=== PATIENT | male | born 1940 | race Caucasian/White ===

== ENCOUNTER 2018-07-10 11:01 | Inpatient (IN) ==
[2018-07-11] MEDS ORDERED: Dextrose Gel 15 GM/37.5 ML TUBE PO PRN ×2 (17:39)
[2018-07-11] MEDS ORDERED: *HR* Dextrose 50 % in Water (Syg) 50 ML SYRINGE IVP PRN (17:39)
[2018-07-11] MEDS ORDERED: D5% in Water 1,000 ML IVC PRN (17:39)
[2018-07-11] MEDS: Insulin LISPRO 300 UNITS/3 ML VIAL SQ SCH ×2 (20:11→21:23)
[2018-07-11] MEDS: Megestrol Acetate 400 MG/10 ML UDC PO SCH (21:19)
[2018-07-11] MEDS: Insulin DETEMIR 100 UNIT/ML X5UNITS SQ SCH (21:21)
[2018-07-12 06:12] LABS: Basophils # 0.1 K/mcL (0.0-0.2); Basophils % 0.6 %; Eosinophils # 0.5 K/mcL (0.0-0.6); Eosinophils % 4.2 %; Hematocrit 33.4 % (37.5-50.1); Hemoglobin 11.2 g/dL (12.9-16.9); Immature Granulocytes % 0.4 % (0-4); Lymphocytes # 2.7 K/mcL (0.6-4.6); Lymphocytes % 25.1 %; Mean Corpuscular HGB Conc 33.5 g/dL (31.6-35.5); Mean Corpuscular Hemoglobin 29.8 pg (28.0-33.3); Mean Corpuscular Volume 88.8 fL (83.0-100.0); Mean Platelet Volume 8.9 fL (9.4-12.4); Monocytes # 0.7 K/mcL (0.0-1.3); Monocytes % 6.9 %; Neutrophils # 6.7 K/mcL (1.6-8.9); Platelet Count 290 K/mcL (140-400); Red Blood Count 3.76 M/mcL (4.19-5.50); Red Cell Distribution Width 14.9 % (11.5-14.5); Segmented Neutrophils % 62.8 %
[2018-07-12 06:24] LABS: BUN/Creatinine Ratio 22 (6-26); Blood Urea Nitrogen 23 mg/dL (8-23); Calcium 8.4 mg/dL (8.6-10.3); Carbon Dioxide 21 mEq/L (23-29); Chloride 108 mEq/L (98-107); Glucose 147 mg/dL (70-105); Osmolality,Calculated 290 (280-300); Potassium 3.8 mEq/L (3.5-5.1); Sodium 137 mEq/L (136-145); eGFR For Non-African Americans > 60 (> 60)
[2018-07-12] MEDS: Aspirin Enteric Coated 81 MG Tablet PO SCH (08:11)
[2018-07-12] MEDS: BuPROPion XL (24 HR) 150 MG TABLET PO SCH (08:11)
[2018-07-12] MEDS: Insulin LISPRO 300 UNITS/3 ML VIAL SQ SCH ×4 (08:16→20:25)
[2018-07-12] MEDS: Megestrol Acetate 400 MG/10 ML UDC PO SCH ×2 (08:16→20:26)
--- NOTE | 2018-07-12 14:15 | Internal Med History&Physical ---
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 He has improved appetite on megace. He had previous failuire to thrive and needs to continue megace for nowl Will increase his long acting insulin slightly and continue slide scale. Change slide scale from low to high dose. AC HS may need even higher long acting depending on short acting needs and blood sugar readings. He likely had need of insulin before he started it and now has peripheral vascular complications. Continue PLAVIX and ASA. He renal function is preserved. He may have some autonomic insufficiency that accounts for orthostatic changes. Continue to monitor. Qualifiers: Diabetes mellitus type: type 2 Diabetes mellitus manager intermediate insulin use: unspecified manager intermediate insulin use status Diabetes mellitus complication status: with circulatory complication Diabetes mellitus complication detail: with other circulatory complications Qualified Code(s): E11.59 - Type 2 diabetes mellitus with other circulatory complications Internal Medicine - H&P: HPI Chief complaint: deconditioning Admitted From: Intrahospital Transfer History of present illness: Mr. Yañez is a 77 year old male who was transfer from [facility] with deconditioning. He has had poorly controlled diabetes, and recently needed a toe amputation. He went to ER feeling weak and was found to have elevated blood sugars. 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 He developed diabetes about age 39, but says never needed insulin until this recent admission. He now is on combination of long and short acting and sugars still running slightly high. He says many in his family have diabetes. He had toe amputation at [place] he says due to diabetic ulcer. He says it does not hurt. He had some weight loss and poor appetite in months prior to admission. He was put on Megace recently and says it helps. Says he feels hunger now. He would like to eat more. He reports some irritation of mouth and some dry mouth. He has some dental disease. He says he does feel dizzy at times when he stands up or sits up fast. He says that has been going on for a while. He denies headache or chest pains. He reports he is able to urinate and passing gas. He says he has some fatigue still. Past Med Surg Social Fam HX - Past Medical History Medical history: coronary artery disease, diabetes, hyperlipidemia, other Additional medical history: multiple spinal fractures, left ear laceration, rib fractures, occlusion right ICA (chronic) Psychiatric history: depression - Past Surgical History Surgical History: coronary bypass (CABG), other Additional surgical history: BPH - Social History Smoking Status: Never smoker Smokeless Tobacco Status: No Alcohol use: none Drug use: none - Family History Father Living Status: Sister Hx Family Endocrine Disorder: Yes (DM) Mother Living Status: Hx Family Endocrine Disorder: Yes (DM) Internal Medicine - H&P: Meds Aspirin Enteric Coated [Aspirin EC] 81 mg PO DAILY 14 Days #14 tablet. 10/22/17 [Rx] Clopidogrel [Plavix] 75 mg PO DAILY 14 Days #14 tablet 10/22/17 [Rx] BuPROPion XL (24 HR) [Wellbutrin Xl] 150 mg PO DAILY 05/06/18 [History] Megestrol Acetate [Megace] 10 ml PO BID 07/08/18 [History] Insulin DETEMIR [Levemir] 15 unit SQ HS 30 Days [id number] 07/11/18 [Rx] Metoprolol [Lopressor] 25 mg PO BID tablet 07/11/18 [Rx] Simvastatin [Zocor] 80 mg PO HS tablet 07/11/18 [Rx] Tamsulosin [Flomax] 0.4 mg PO DAILY capsule 07/11/18 [Rx] Allergy/AdvReac Type Severity Reaction Status Date / Time No Known Allergies Allergy Verified 11/13/17 12:13 All Systems PM: A 10-system review of systems was performed and is negative for pertinent findings except as documented above in the HPI. - Constitutional Vitals: Temp Pulse Resp BP Pulse Ox 98.0 F 78 14 102/62 94 07/12/18 09:56 07/12/18 11:53 07/12/18 09:56 07/12/18 11:53 07/12/18 11:53 - ENT ENT exam: Present: mucous membranes dry, normal external ear exam Additional comments: Pt has erythematous oral mucosa with mild white debri in folds - Neck Additional comments: no mass no bruit - Respiratory Additional comments: pt has good effort and clear bilateral - Cardiovascular Cardiovascular exam: Present: distant heart sounds Additional comments: Heart is regular No murmer - GI/Abdominal GI/Abdominal exam: Present: normal bowel sounds Additional comments: pt abd is soft NT no mass palp Internal Med - H&P Results - Labs CBC & Chem 7: 07/14/18 05:35 07/14/18 05:35 Labs: Short CBC 07/12/18 Range/Units 05:25 WBC 10.7 (4.3-11.1) K/mcL Hgb 11.2 L (12.9-16.9) g/dL Hct 33.4 L (37.5-50.1) % Plt Count 290 (140-400) K/mcL Neutrophils # 6.7 (1.6-8.9) K/mcL BMP 07/12/18 05:25 Sodium 137 Potassium 3.8 Chloride 108 H Carbon Dioxide 21 L BUN 23 Creatinine 1.04 Glucose 147 H Calcium 8.4 L
[2018-07-12] MEDS: *HR* Heparin 5,000 UNIT/ML VIAL SQ SCH (17:10)
[2018-07-12] MEDS: Insulin DETEMIR 100 UNIT/ML X5UNITS SQ SCH (20:26)
[2018-07-13] MEDS: *HR* Heparin 5,000 UNIT/ML VIAL SQ SCH ×2 (05:47→16:47)
[2018-07-13] MEDS: Aspirin Enteric Coated 81 MG Tablet PO SCH (08:24)
[2018-07-13] MEDS: BuPROPion XL (24 HR) 150 MG TABLET PO SCH (08:24)
[2018-07-13] MEDS: Insulin LISPRO 300 UNITS/3 ML VIAL SQ SCH ×4 (08:25→20:44)
[2018-07-13] MEDS: Megestrol Acetate 400 MG/10 ML UDC PO SCH ×2 (08:25→20:01)
[2018-07-13 16:18] LABS: Bilirubin,Urine Negative (Negative); Blood,Urine Negative (Negative); Clarity,Urine Clear (Clear); Color,Urine Yellow (Yellow); Glucose,Urine (UA) >=1000 mg/dL (Normal); Ketones,Urine Trace mg/dL (Negative); Leukocyte Esterase,Urine Trace (Negative); Nitrite,Urine Negative (Negative); Protein,Urine 30 mg/dL (Neg-Trace); Urobilinogen,Urine Normal (Normal)
[2018-07-13 16:40] LABS: Bacteria,Urine Few per hpf (None-Few); Mucus,Urine Many (Few); RBC,Urine 0-3 per hpf (0-3); Squamous Epithelial Cell,Urine Moderate per lpf (None-Few)
[2018-07-13] MEDS: Nystatin SUSP 5 ML UD.LIQ PO SCH ×2 (16:48→20:02)
[2018-07-13] MEDS: Multivit/Ca/Min/Fe/FA 1 TAB TABLET PO SCH (16:48)
[2018-07-13] MEDS: Ascorbic Acid 500 MG TABLET PO SCH ×2 (16:48→20:02)
[2018-07-13] MEDS: Insulin DETEMIR 100 UNIT/ML X5UNITS SQ SCH (20:43)
[2018-07-14] MEDS: *HR* Heparin 5,000 UNIT/ML VIAL SQ SCH ×2 (05:38→17:21)
[2018-07-14 06:19] LABS: Basophils # 0.1 K/mcL (0.0-0.2); Basophils % 0.9 %; Eosinophils # 0.6 K/mcL (0.0-0.6); Eosinophils % 5.7 %; Hematocrit 34.8 % (37.5-50.1); Hemoglobin 11.8 g/dL (12.9-16.9); Immature Granulocytes % 0.6 % (0-4); Lymphocytes # 2.9 K/mcL (0.6-4.6); Lymphocytes % 29.4 %; Mean Corpuscular HGB Conc 33.9 g/dL (31.6-35.5); Mean Corpuscular Hemoglobin 30.3 pg (28.0-33.3); Mean Corpuscular Volume 89.5 fL (83.0-100.0); Mean Platelet Volume 9.1 fL (9.4-12.4); Monocytes # 0.7 K/mcL (0.0-1.3); Monocytes % 6.9 %; Neutrophils # 5.6 K/mcL (1.6-8.9); Platelet Count 310 K/mcL (140-400); Red Blood Count 3.89 M/mcL (4.19-5.50); Red Cell Distribution Width 15.3 % (11.5-14.5); Segmented Neutrophils % 56.5 %
[2018-07-14 06:31] LABS: BUN/Creatinine Ratio 21 (6-26); Blood Urea Nitrogen 23 mg/dL (8-23); Calcium 9.2 mg/dL (8.6-10.3); Carbon Dioxide 22 mEq/L (23-29); Chloride 108 mEq/L (98-107); Glucose 268 mg/dL (70-105); Osmolality,Calculated 295 (280-300); Potassium 4.5 mEq/L (3.5-5.1); Sodium 136 mEq/L (136-145); eGFR For Non-African Americans > 60 (> 60)
[2018-07-14] MEDS: Multivit/Ca/Min/Fe/FA 1 TAB TABLET PO SCH (08:33)
[2018-07-14] MEDS: Nystatin SUSP 5 ML UD.LIQ PO SCH ×4 (08:33→19:47)
[2018-07-14] MEDS: Aspirin Enteric Coated 81 MG Tablet PO SCH (08:33)
[2018-07-14] MEDS: BuPROPion XL (24 HR) 150 MG TABLET PO SCH (08:33)
[2018-07-14] MEDS: Megestrol Acetate 400 MG/10 ML UDC PO SCH ×2 (08:34→19:47)
[2018-07-14] MEDS: Insulin LISPRO 300 UNITS/3 ML VIAL SQ SCH ×4 (08:34→20:52)
[2018-07-14] MEDS: Ascorbic Acid 500 MG TABLET PO SCH ×2 (08:35→19:46)
--- NOTE | 2018-07-14 11:50 | Internal Med Progress Note ---
Addendum entered and electronically signed by Giovanni Benitez MD 07/14/18 11:57: I have personally performed a face to face evaluation on this patient. I have r eviewed and agree with the care plan. History and Exam by me shows: Patient is feeling-slightly improved in terms of energy but still very poor. He is eating better but his states that he is not drinking well, at all. He had hypotension over the weekend but this is been improved and we will resume therapy, ordering orthostatics for 24 hours to assess. Because of potential orthostatic hypotension and fatigue, we will decrease his metoprolol to 25 mg, extended release, daily. Discussed care with other providers and/or nursing. Patient has no complaint of chest discomfort, dyspnea, orthopnea, palpitations, nausea or vomiting, constipation or diarrhea, other changes in bowel habits, difficulty with urination, rash or itching, or other new complaints, except as mentioned above. Review of systems is otherwise negative. Examination: (Except as mentioned above): General: In no apparent distress. Alert and oriented 3. Nondiaphoretic. Head: Atraumatic and normocephalic. Respiratory: No use of accessory muscles. Lungs are clear throughout. Normal airflow. Cardiovascular: Regular rate and rhythm without murmur appreciated. Abdomen: Bowel sounds are normal. No hepatosplenomegaly mass or tenderness appreciated. Obese and therefore difficult to palpate deeply. Extremities: No cyanosis clubbing or edema. Right great toe amputation area looks to be noninfected and has a healing superficial wound. Skin: Warm and non-diaphoretic with no new lesions noted. Original Note: Date of Encounter: 07/14/18 Time of Encounter: 11:47 - Assessment and plan (1) Diabetes mellitus Current Visit: Yes Status: Chronic Assessment and plan: controlled with insulin. monitor FSBS. continue diabetic diet. 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 continue drsg change. f/u with wound and surgeon as scheduled. 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 denies pain, fever, chills, NVD, SOB or chest pain. maintaining appetite and hydration. - Constitutional Vitals: Temp Pulse Resp BP Pulse Ox 98.5 F 58 17 153/76 96 07/14/18 07:58 07/14/18 07:58 07/14/18 07:58 07/14/18 07:58 07/14/18 07:58 General appearance: Present: cooperative, A&O X 3, pleasant, no acute distress, answers questions appropriately - Head Head exam: Present: atraumatic, normocephalic - Eye Eye exam: Present: PERRL, conjuntiva pink, sclera anicteric Pupils: Present: PERRL - Neck Neck exam general surgery: Present: supple, trachea midline. Absent: lymphadenopathy - Respiratory Respiratory exam: Present: CTAB. Absent: accessory muscle use, rales, rhonchi, wheezes - Cardiovascular Cardiovascular exam: Present: RRR, +S1, +S2. Absent: diastolic murmur, gallop, rubs, systolic murmur - GI/Abdominal GI/Abdominal exam: Present: normal bowel sounds, soft, no peritoneal signs. Absent: distended, tenderness - Extremities Exam Extremities exam: Present: warm, radial pulses palpable and symmetrical. Absent: calf tenderness, cyanotic, pedal edema - Neurological Exam Neurological exam: Present: CN II-XII intact, oriented X3, no focal deficits. Absent: pronater drift, facial droop, speech deficit - Skin Skin exam: Present: dry, intact Additional comments: right foot toe amputation site, healing, dime sized wound with sm amt of drainage, yellowish exudate in wound bed. Internal Medicine: Result - Labs CBC & Chem 7: 07/14/18 05:35 07/14/18 05:35 Labs: Short CBC 07/14/18 Range/Units 05:35 WBC 9.9 (4.3-11.1) K/mcL Hgb 11.8 L (12.9-16.9) g/dL Hct 34.8 L (37.5-50.1) % Plt Count 310 (140-400) K/mcL Neutrophils # 5.6 (1.6-8.9) K/mcL BMP 07/14/18 05:35 Sodium 136 Potassium 4.5 Chloride 108 H Carbon Dioxide 22 L BUN 23 Creatinine 1.10 Glucose 268 H Calcium 9.2 Urine 07/13/18 Range/Units 15:42 Urine Color Yellow (Yellow) Urine Clarity Clear (Clear) Urine pH 6.0 (5.0-8.0) pH Units Ur Specific [place] 1.020 (1.010-1.025) Urine Protein 30 H (Neg-Trace) mg/dL Urine Glucose (UA) >=1000 H (Normal) mg/dL Consult Discharge Plan - Plan Referrals: Yogi Moser Jr, MD [Primary Care Provider] -
--- NOTE | 2018-07-14 12:03 | Internal Med Progress Note ---
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 He has been improving on insulin regimine and megace. Now wt and appetite are improving. He is in better mood today and says he is feeling he got rest. He is eating much better He still feels dizzy when he gets up and says that has been going on over 6 months. He has longstanding daibetes and strong family history of diabetes. He was diagnosed age 39 but did not use insulin unti recent admission he does not know how long his sugars have been high. denies vision change or CP His kidney function is good. 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 He has improved appetite on megace. He had previous failuire to thrive and needs to continue megace for nowl Will increase his long acting insulin slightly and continue slide scale. Change slide scale from low to high dose. AC HS may need even higher long acting depending on short acting needs and blood sugar readings. He likely had need of insulin before he started it and now has peripheral vascular complications. Continue PLAVIX and ASA. He renal function is preserved. He may have some autonomic insufficiency that accounts for orthostatic changes. Continue to monitor. 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 Yañez is a 77 year old male who was transfer from [facility] with deconditioning. He has had poorly controlled diabetes, and recently needed a toe amputation. He went to ER feeling weak and was found to have elevated blood sugars. His says he was always active, was a [employer] all his life. He developed diabetes about age 39, but says never needed insulin until this recent admission. He now is on combination of long and short acting and sugars still running slightly high. He says many in his family have diabetes. He had toe amputation at [place] he says due to diabetic ulcer. He says it does not hurt. He had some weight loss and poor appetite in months prior to admission. He was put on Megace recently and says it helps. Says he feels hunger now. He would like to eat more. He reports some irritation of mouth and some dry mouth. He has some dental disease. He says he does feel dizzy at times when he stands up or sits up fast. He says that has been going on for a while. HE has been a nonsmoker and active was a lifelong [employer] He denies headache or chest pains. He reports he is able to urinate and passing gas. He says he has some fatigue still. Internal Medicine - H&P: Meds Aspirin Enteric Coated [Aspirin EC] 81 mg PO DAILY 14 Days #14 tablet. 10/22/17 [Rx] Clopidogrel [Plavix] 75 mg PO DAILY 14 Days #14 tablet 10/22/17 [Rx] BuPROPion XL (24 HR) [Wellbutrin Xl] 150 mg PO DAILY 05/06/18 [History] Megestrol Acetate [Megace] 10 ml PO BID 07/08/18 [History] Insulin DETEMIR [Levemir] 15 unit SQ HS 30 Days [id number] 07/11/18 [Rx] Metoprolol [Lopressor] 25 mg PO BID tablet 07/11/18 [Rx] Simvastatin [Zocor] 80 mg PO HS tablet 07/11/18 [Rx] Tamsulosin [Flomax] 0.4 mg PO DAILY capsule 07/11/18 [Rx] Allergy/AdvReac Type Severity Reaction Status Date / Time No Known Allergies Allergy Verified 11/13/17 12:13 All Systems PM: A 10-system review of systems was performed and is negative for pertinent findings except as documented above in the HPI. - Constitutional General thin WM poor dentition good eye contact - ENT ENT exam: Present: mucous membranes dry, normal external ear exam Additional comments: Pt has erythematous oral mucosa with mild white debri in folds - Neck Additional comments: no mass no bruit - Respiratory Additional comments: pt has good effort and clear bilateral - Cardiovascular Cardiovascular exam: Present: distant heart sounds Additional comments: Heart is regular No murmer - GI/Abdominal GI/Abdominal exam: Present: normal bowel sounds Additional comments: pt abd is soft NT no mass palp - Constitutional Vitals: Temp Pulse Resp BP Pulse Ox 98.5 F 58 17 153/76 96 07/14/18 07:58 07/14/18 07:58 07/14/18 07:58 07/14/18 07:58 07/14/18 07:58 General appearance: Present: cooperative, A&O X 3, pleasant, no acute distress, answers questions appropriately Internal Medicine: Result - Labs CBC & Chem 7: 07/14/18 05:35 07/14/18 05:35 Labs: Short CBC 07/14/18 Range/Units 05:35 WBC 9.9 (4.3-11.1) K/mcL Hgb 11.8 L (12.9-16.9) g/dL Hct 34.8 L (37.5-50.1) % Plt Count 310 (140-400) K/mcL Neutrophils # 5.6 (1.6-8.9) K/mcL BMP 07/14/18 05:35 Sodium 136 Potassium 4.5 Chloride 108 H Carbon Dioxide 22 L BUN 23 Creatinine 1.10 Glucose 268 H Calcium 9.2 Urine 07/13/18 Range/Units 15:42 Urine Color Yellow (Yellow) Urine Clarity Clear (Clear) Urine pH 6.0 (5.0-8.0) pH Units Ur Specific [place] 1.020 (1.010-1.025) Urine Protein 30 H (Neg-Trace) mg/dL Urine Glucose (UA) >=1000 H (Normal) mg/dL Consult Discharge Plan - Plan Referrals: Yogi Moser Jr, MD [Primary Care Provider] -
[2018-07-14] MEDS: Insulin DETEMIR 100 UNIT/ML X5UNITS SQ SCH (20:54)
[2018-07-15] MEDS: *HR* Heparin 5,000 UNIT/ML VIAL SQ SCH ×2 (05:07→19:07)
[2018-07-15 06:11] LABS: BUN/Creatinine Ratio 25 (6-26); Blood Urea Nitrogen 28 mg/dL (8-23); Calcium 8.6 mg/dL (8.6-10.3); Carbon Dioxide 22 mEq/L (23-29); Chloride 109 mEq/L (98-107); Glucose 262 mg/dL (70-105); Osmolality,Calculated 299 (280-300); Potassium 4.2 mEq/L (3.5-5.1); Sodium 137 mEq/L (136-145); eGFR For Non-African Americans > 60 (> 60)
[2018-07-15] MEDS: Aspirin Enteric Coated 81 MG Tablet PO SCH (08:24)
[2018-07-15] MEDS: Metoprolol XL (24 HR) Succ 25 MG TAB.ER.24H PO SCH (08:24)
[2018-07-15] MEDS: BuPROPion XL (24 HR) 150 MG TABLET PO SCH (08:34)
[2018-07-15] MEDS: Ascorbic Acid 500 MG TABLET PO SCH ×2 (08:35→20:00)
[2018-07-15] MEDS: Nystatin SUSP 5 ML UD.LIQ PO SCH ×4 (08:35→20:01)
[2018-07-15] MEDS: Multivit/Ca/Min/Fe/FA 1 TAB TABLET PO SCH (08:35)
[2018-07-15] MEDS: Megestrol Acetate 400 MG/10 ML UDC PO SCH ×2 (08:35→20:01)
[2018-07-15] MEDS: Insulin LISPRO 300 UNITS/3 ML VIAL SQ SCH ×3 (08:38→17:23)
--- NOTE | 2018-07-15 09:14 | Internal Med Progress Note ---
Addendum entered and electronically signed by Giovanni Benitez MD 07/15/18 12:26: I have personally performed a face to face evaluation on this patient. I have r eviewed and agree with the care plan. History and Exam by me shows: The patient is without complaint. He has more energy and his appetite is markedly better. Nursing notes that his sugar is still in the 300s and we are following with sliding scale, may increase regimen depending upon his sugars over time. He is remarkably orthostatic hypotensive with standing position. His notes that he has been on bupropion and Flomax since his carotid surgery, about 3 or 4 months ago. 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 I explained that we want to make sure that he has little hypotension, if possible. I spoke with the pharmacist who feels that bupropion is likely not a contributor at least as much as Flomax. For this reason we will stop Flomax and start Proscar, tomorrow. In a few days we will need to check postvoid residual and orthostatic hypotension, again. If it persists, we will consider midodrine or Florinef. Discussed care with other providers and/or nursing. Patient has no complaint of chest discomfort, dyspnea, orthopnea, palpitations, nausea or vomiting, constipation or diarrhea, other changes in bowel habits, difficulty with urination, rash or itching, or other new complaints, except as mentioned above. Review of systems is otherwise negative. Examination: (Except as mentioned above): General: In no apparent distress. Alert and oriented 3. Nondiaphoretic. Head: Atraumatic and normocephalic. Respiratory: No use of accessory muscles. Lungs are clear throughout. Normal airflow. Cardiovascular: Regular rate and rhythm without murmur appreciated. Abdomen: Bowel sounds are normal. No hepatosplenomegaly mass or tenderness appreciated. Obese and therefore difficult to palpate deeply. Extremities: No cyanosis clubbing or edema. Skin: Warm and non-diaphoretic with no new lesions noted. Original Note: Date of Encounter: 07/15/18 Time of Encounter: 09:12 - Assessment and plan (1) Diabetes mellitus Current Visit: Yes Status: Acute Assessment and plan: controlled with insulin. monitor FSBS. continue diabetic diet. 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 continue drsg change. f/u with wound and surgeon as scheduled. 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 Will monitor. - Time Spent With Patient 25 - 35 minutes - Subjective Interval history: laying in bed. denies pain, fever, chills, NVD, SOB or chest pain. maintaining appetite and hydration. Patient having orthostatic hypotension from going to lying to sitting. Patient denies any dizziness. - Constitutional Vitals: Temp Pulse Resp BP Pulse Ox 98.8 F 74 14 112/65 96 07/15/18 07:57 07/15/18 07:57 07/15/18 07:57 07/15/18 07:57 07/15/18 07:57 General appearance: Present: cooperative, A&O X 3, pleasant, no acute distress, answers questions appropriately - Head Head exam: Present: atraumatic, normocephalic - Eye Eye exam: Present: PERRL, conjuntiva pink, sclera anicteric Pupils: Present: PERRL - Neck Neck exam general surgery: Present: supple, trachea midline. Absent: lymphadenopathy - Respiratory Respiratory exam: Present: CTAB. Absent: accessory muscle use, rales, rhonchi, wheezes - Cardiovascular Cardiovascular exam: Present: RRR, +S1, +S2. Absent: diastolic murmur, gallop, rubs, systolic murmur - GI/Abdominal GI/Abdominal exam: Present: normal bowel sounds, soft, no peritoneal signs. Absent: distended, tenderness - Extremities Exam Extremities exam: Present: warm, radial pulses palpable and symmetrical. Absent: calf tenderness, cyanotic, pedal edema - Neurological Exam Neurological exam: Present: CN II-XII intact, oriented X3, no focal deficits. Absent: pronater drift, facial droop, speech deficit - Skin Skin exam: Present: dry, intact Internal Medicine: Result - Labs CBC & Chem 7: 07/14/18 05:35 07/15/18 05:25 Labs: BMP 07/15/18 05:25 Sodium 137 Potassium 4.2 Chloride 109 H Carbon Dioxide 22 L BUN 28 H Creatinine 1.14 Glucose 262 H Calcium 8.6 Consult Discharge Plan - Plan Referrals: Yogi Moser Jr, MD [Primary Care Provider] -
[2018-07-16] MEDS: Insulin DETEMIR 100 UNIT/ML X5UNITS SQ SCH ×2 (00:26→22:10)
[2018-07-16] MEDS: Insulin LISPRO 300 UNITS/3 ML VIAL SQ SCH ×5 (00:26→22:10)
[2018-07-16] MEDS: *HR* Heparin 5,000 UNIT/ML VIAL SQ SCH ×2 (05:46→17:29)
[2018-07-16 06:36] LABS: BUN/Creatinine Ratio 25 (6-26); Blood Urea Nitrogen 29 mg/dL (8-23); Calcium 8.8 mg/dL (8.6-10.3); Carbon Dioxide 25 mEq/L (23-29); Chloride 107 mEq/L (98-107); Glucose 321 mg/dL (70-105); Osmolality,Calculated 302 (280-300); Potassium 4.8 mEq/L (3.5-5.1); Sodium 137 mEq/L (136-145); eGFR For Non-African Americans > 60 (> 60)
[2018-07-16] MEDS: Metoprolol XL (24 HR) Succ 25 MG TAB.ER.24H PO SCH (08:33)
[2018-07-16] MEDS: Finasteride 5 MG TABLET PO SCH (09:24)
[2018-07-16] MEDS: Multivit/Ca/Min/Fe/FA 1 TAB TABLET PO SCH (09:24)
[2018-07-16] MEDS: Aspirin Enteric Coated 81 MG Tablet PO SCH (09:24)
[2018-07-16] MEDS: BuPROPion XL (24 HR) 150 MG TABLET PO SCH (09:24)
[2018-07-16] MEDS: Ascorbic Acid 500 MG TABLET PO SCH ×2 (09:24→22:09)
[2018-07-16] MEDS: Megestrol Acetate 400 MG/10 ML UDC PO SCH ×2 (09:25→22:09)
[2018-07-16] MEDS: Nystatin SUSP 5 ML UD.LIQ PO SCH ×4 (09:26→22:09)
--- NOTE | 2018-07-16 11:32 | Internal Med Progress Note ---
Date of Encounter: 07/16/18 Time of Encounter: 11:27 - Assessment and plan (1) Altered mental status Current Visit: No Status: Acute Assessment and plan: Patient with mild dementia, per baseline? Qualifiers: Altered mental status type: delirium Qualified Code(s): R41.0 - D isorientation, unspecified (2) Coronary artery disease Current Visit: No Status: Chronic Assessment and plan: Apparently stable but will check enzymes as the episode this morning was disconcerting. Qualifiers: Coronary Disease-Associated Artery/Lesion type: [place] artery [place] vs. transplanted heart: [place] heart Associated angina: without angina Qualified Code(s): I25.10 - Atherosclerotic heart disease of [place] coronary artery without angina pectoris (3) Hypotension Current Visit: No Status: Resolved Assessment and plan: This is orthostatic and he had associated hypoxia and tachycardia. We will make sure he has no sign of ischemia or ischemic heart disease active. If this is negative, might consider cardiology consultation (cardiac consult is not available here) and/or transfer to another facility. Will consider midodrine or Florinef for hypotension, if no other contraindication. We switched to Proscar from Flomax, yesterday. Qualifiers: Hypotension type: unspecified hypotension type Qualified Code(s): I95.9 - Hypotension, unspecified (4) Carotid stenosis Current Visit: No Status: Acute Assessment and plan: This has been repaired about 2 months ago on one side and is 100% blocked on the other. Qualifiers: Laterality: right Qualified Code(s): I65.21 - Occlusion and stenosis of right carotid artery (5) BPH (benign prostatic hyperplasia) Current Visit: No Status: Chronic Assessment and plan: No current signs or symptoms. Qualifiers: Lower urinary tract symptom presence: symptoms present Lower urinary tract symptom detail: urinary retention Qualified Code(s): N40.1 - Benign prostatic hyperplasia with lower urinary tract symptoms; R33.8 - Other retention of urine; R33.8 - Other retention of urine (6) Uncontrolled diabetes mellitus Current Visit: No Status: Acute Assessment and plan: He still has intermittent sugars in the 300s. 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 Will follow with sliding scale and may need to increase his long-acting insulin dose Qualifiers: Diabetes mellitus type: type 2 Glycemic state: with hyperglycemia Qualified Code(s): E11.65 - Type 2 diabetes mellitus with hyperglycemia - Subjective Interval history: Patient had an episode of low blood pressure and low to mid back pain, this morning. Patient was noted to have a rapid heart rate, blood pressure in the 90s, and a saturation of oxygen that dropped significantly. EKGs and labs for troponin were obtained but results are pending. EKG shows no ischemia. The patient states that his back has returned to normal and is not hurting, after his resumption of position, back in bed. He states that he has not moved his bowels and 3 days. He is taking medicine, for same. Patient has no complaint of chest discomfort, dyspnea, orthopnea, palpitations, nausea or vomiting, constipation or diarrhea, other changes in bowel habits, difficulty with urination, rash or itching, or other new complaints, except as mentioned above. Review of systems is otherwise negative. I discussed management of her care with nursing staff. - Constitutional Vitals: Temp Pulse Resp BP Pulse Ox 97.7 F 81 14 121/76 97 07/15/18 20:03 07/16/18 07:57 07/15/18 20:03 07/16/18 07:57 07/15/18 20:03 Exam: Examination: (Except as mentioned above): General: In no apparent distress. Alert and oriented 3. Nondiaphoretic. Head: Atraumatic and normocephalic. Respiratory: No use of accessory muscles. Lungs are clear throughout. Normal airflow. Cardiovascular: Irregularly irregular with controlled rate, without murmur appreciated. Abdomen: Bowel sounds are normal. No hepatosplenomegaly mass or tenderness appreciated. Obese and therefore difficult to palpate deeply. Extremities: No cyanosis clubbing or edema. Skin: Warm and non-diaphoretic with no new lesions noted. Internal Medicine: Result - Labs CBC & Chem 7: 07/14/18 05:35 07/16/18 05:25 Labs: BMP 07/16/18 05:25 Sodium 137 Potassium 4.8 Chloride 107 Carbon Dioxide 25 BUN 29 H Creatinine 1.15 Glucose 321 H Calcium 8.8 Cardiac Enzymes 07/16/18 Range/Units 08:32 Troponin I < 0.03 (< 0.04) ng/mL Consult Discharge Plan - Plan Referrals: Yogi Moser Jr, MD [Primary Care Provider] -
[2018-07-16] MEDS: Silver Sulfadiazine 50 GM TUBE TP SCH (22:09)
[2018-07-17 02:35] LABS: BUN/Creatinine Ratio 24 (6-26); Blood Urea Nitrogen 30 mg/dL (8-23); Calcium 8.8 mg/dL (8.6-10.3); Carbon Dioxide 23 mEq/L (23-29); Chloride 105 mEq/L (98-107); Glucose 306 mg/dL (70-105); Osmolality,Calculated 296 (280-300); Potassium 4.2 mEq/L (3.5-5.1); Sodium 134 mEq/L (136-145); eGFR For Non-African Americans 56 (> 60)
[2018-07-17] MEDS: *HR* Heparin 5,000 UNIT/ML VIAL SQ SCH ×2 (05:35→17:31)
[2018-07-17] MEDS: Insulin LISPRO 300 UNITS/3 ML VIAL SQ SCH ×4 (08:37→21:55)
[2018-07-17] MEDS: Megestrol Acetate 400 MG/10 ML UDC PO SCH ×2 (08:38→21:53)
[2018-07-17] MEDS: Nystatin SUSP 5 ML UD.LIQ PO SCH ×4 (08:38→21:53)
[2018-07-17] MEDS: Finasteride 5 MG TABLET PO SCH (08:38)
[2018-07-17] MEDS: Multivit/Ca/Min/Fe/FA 1 TAB TABLET PO SCH (08:38)
[2018-07-17] MEDS: BuPROPion XL (24 HR) 150 MG TABLET PO SCH (08:38)
[2018-07-17] MEDS: Ascorbic Acid 500 MG TABLET PO SCH ×2 (08:39→21:54)
[2018-07-17] MEDS: Aspirin Enteric Coated 81 MG Tablet PO SCH (08:39)
[2018-07-17] MEDS: Metoprolol XL (24 HR) Succ 25 MG TAB.ER.24H PO SCH (08:40)
[2018-07-17] MEDS: Silver Sulfadiazine 50 GM TUBE TP SCH (08:58)
--- NOTE | 2018-07-17 10:49 | Internal Med Progress Note ---
Addendum entered and electronically signed by Giovanni Benitez MD 07/17/18 11:24: I have personally performed a face to face evaluation on this patient. I have r eviewed and agree with the care plan. History and Exam by me shows: I discussed extensively with the patient and his only symptom is low back pain when sitting up. He denies dizziness, chest pain, hypoxia, etc. Seemingly, he did not become tachycardic when he sat up, this time. I also find him to be in regular rhythm, with sinus rhythm suspected. I think he did not have atrial fibrillation with rapid ventricular response when he sat up, today. He is wanting to proceed with therapy but he is so dizzy and has back pain when her range. I discussed with multiple staff and we will try an abdominal binder, watch his symptoms, happened 2 more at bedside and do small amounts of therapy, frequently. I discussed his orthostasis extensively with staff and pharmacy. 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 We could give him midodrine but Florinef is probably a better choice. I discussed with pharmacy and the clinical pharmacist at [facility] feels that midodrine has too many potential side effects for this vasculopath and diabetic male. We will thus begin Florinef, this evening and daily the reafter. Discussed care with other providers and/or nursing. Patient has no complaint of chest discomfort, dyspnea, orthopnea, palpitations, nausea or vomiting, constipation or diarrhea, other changes in bowel habits, difficulty with urination, rash or itching, or other new complaints, except as mentioned above. Review of systems is otherwise negative. Examination: (Except as mentioned above): General: In no apparent distress. Alert and oriented 3. Nondiaphoretic. Head: Atraumatic and normocephalic. Respiratory: No use of accessory muscles. Lungs are clear throughout. Normal a irflow. Cardiovascular: Regular rate and rhythm without murmur appreciated. Abdomen: Bowel sounds are normal. No hepatosplenomegaly mass or tenderness appreciated. Obese and therefore difficult to palpate deeply. Extremities: No cyanosis clubbing or edema. Skin: Warm and non-diaphoretic with no new lesions noted. We remain concerned about his ability to participate in therapies and will follow as mentioned above. Original Note: Date of Encounter: 07/17/18 Time of Encounter: 10:47 - Assessment and plan (1) Diabetes mellitus Current Visit: Yes Status: Chronic Assessment and plan: Patient continues to be poorly controlled diabetic with most fingersticks showing elevation greater than 300. We will increase patient's current long acting insulin to 24 units daily at bedtime. We will continue with sliding scale coverage. Qualifiers: Diabetes mellitus type: type 2 Diabetes mellitus [facility] insulin use: unspecified manager long term care insulin use status Diabetes mellitus complication status: with circulatory complication Diabetes mellitus complication detail: with other circulatory complications Qualified Code(s): E11.59 - Type 2 diabetes mellitus with other circulatory complications (2) Right sided cerebral hemisphere cerebrovascular accident (CVA) Current Visit: Yes Status: Chronic Assessment and plan: No acute issues. Patient continues a very slight right hemiparesis. We will continue with therapy (3) Altered mental status Current Visit: Yes Status: Acute Assessment and plan: No acute issues. Patient was appropriate with conversation during exam. Patient with mild dementia with questionable medical compliance 1 her home. Qualifiers: Altered mental status type: delirium Qualified Code(s): R41.0 - Disorientation, unspecified (4) Coronary artery disease Current Visit: No Status: Chronic Assessment and plan: Patient has had orthostatic hypotension. Denies any palpitations or chest discomforts but does have slight dizziness when standing. We will continue with current plan of care. Qualifiers: Coronary Disease-Associated Artery/Lesion type: [place] artery [place] vs. transplanted heart: [place] heart Associated angina: without angina Qualified Code(s): I25.10 - Atherosclerotic heart disease of [place] coronary artery without angina pectoris (5) Orthostatic hypotension Current Visit: Yes Status: Acute Assessment and plan: Patient has been tilt positive on orthostatic vital signs. Patient states she has slight dizziness when standing. Denies any chest discomforts or palpitations. Will start patient on Florinef and monitor his vital signs. We will attempt physical therapy today. - Time Spent With Patient less than 15 minutes - Subjective Interval history: Patient appears relaxed and currently denies any discomforts or shortness of breath. Patient has had issues with orthostatic hypotension since his admission. Nursing performed orthostatic vital signs which were positive. Patient states that he had slight dizziness but denied any palpitations with standing. Patient also has had very poorly controlled glucose on fingersticks. Multiple readings greater than 300. Patient with a history of noncompliance at home due to dementia - Constitutional Vitals: Temp Pulse Resp BP Pulse Ox 98.4 F 87 18 75/53 97 07/17/18 08:02 07/17/18 09:17 07/17/18 09:17 07/17/18 09:17 07/17/18 09:17 General appearance: Present: cooperative, A&O X 3, pleasant, no acute distress, answers questions appropriately - Head Head exam: Present: atraumatic, normocephalic - Eye Eye exam: Present: PERRL, conjuntiva pink, sclera anicteric Pupils: Present: PERRL - Neck Neck exam general surgery: Present: supple, trachea midline. Absent: lymphadenopathy - Respiratory Respiratory exam: Present: CTAB. Absent: accessory muscle use, rales, rhonchi, wheezes - Cardiovascular Cardiovascular exam: Present: RRR, +S1, +S2. Absent: diastolic murmur, gallop, rubs, systolic murmur Additional comments: Orthostatic vital signs per nursing - GI/Abdominal GI/Abdominal exam: Present: normal bowel sounds, soft, no peritoneal signs. Absent: distended, tenderness - Extremities Exam Extremities exam: Present: warm, radial pulses palpable and symmetrical. Absent: calf tenderness, cyanotic, pedal edema Additional comments: Slight bilateral vascular Finn noted on bilateral legs - Neurological Exam Neurological exam: Present: CN II-XII intact, oriented X3, no focal deficits. Absent: pronater drift, facial droop, speech deficit - Skin Skin exam: Present: dry, intact Internal Medicine: Result - Labs CBC & Chem 7: 07/14/18 05:35 07/17/18 02:20 Labs: BMP 07/17/18 02:20 Sodium 134 L Potassium 4.2 Chloride 105 Carbon Dioxide 23 BUN 30 H Creatinine 1.26 Glucose 306 H Calcium 8.8 Cardiac Enzymes 07/16/18 07/16/18 07/17/18 Range/Units 14:30 20:30 02:20 Troponin I < 0.03 < 0.03 < 0.03 (< 0.04) ng/mL Consult Discharge Plan - Plan Referrals: Yogi Moser Jr, MD [Primary Care Provider] -
--- NOTE | 2018-07-17 16:05 | Electrocardiograph Report ---
[address] [address] Test Date: 2018-07-17 Pat Name: Mark Yañez Department: 2001 Room: 111 Gender: M Time Clerk: : 1940 Requested By: Giovanni Benitez Order Number: [id number] Reading MD: Ramos Dawson Measurements Intervals [place] Rate: 71 P: OR: 98 QRS: -18 QRSD: 86 T: 41 QT: 397 QTc: 420 Interpretive Statements SINUS RHYTHM WITH SHORT OR INTERVAL OR ECTOPIC ATRIAL RHYTHM POOR R WAVE PROGRESSION INFERIOR MYOCARDIAL INFARCTION, AGE INDETERMINATE Electronically Signed On 07-17-2018 16:03:54 EST by Ramos Dawson
[2018-07-17] MEDS ORDERED: Insulin DETEMIR 100 UNIT/ML X5UNITS SQ SCH (21:00)
[2018-07-18] MEDS: *HR* Heparin 5,000 UNIT/ML VIAL SQ SCH (06:38)
[2018-07-18] MEDS: Multivit/Ca/Min/Fe/FA 1 TAB TABLET PO SCH (09:08)
[2018-07-18] MEDS: BuPROPion XL (24 HR) 150 MG TABLET PO SCH (09:08)
[2018-07-18] MEDS: Ascorbic Acid 500 MG TABLET PO SCH (09:08)
[2018-07-18] MEDS: Nystatin SUSP 5 ML UD.LIQ PO SCH (09:09)
[2018-07-18] MEDS: Aspirin Enteric Coated 81 MG Tablet PO SCH (09:09)
[2018-07-18] MEDS: Megestrol Acetate 400 MG/10 ML UDC PO SCH (09:09)
[2018-07-18] MEDS: Metoprolol XL (24 HR) Succ 25 MG TAB.ER.24H PO SCH (09:11)
[2018-07-18] MEDS: Insulin LISPRO 300 UNITS/3 ML VIAL SQ SCH ×2 (09:20→12:37)
[2018-07-18] MEDS: Finasteride 5 MG TABLET PO SCH (09:22)
--- NOTE | 2018-07-18 10:45 | Internal Med Progress Note ---
Date of Encounter: 07/18/18 Time of Encounter: 10:43 - Assessment and plan (1) Diabetes mellitus Current Visit: Yes Status: Chronic Qualifiers: Diabetes mellitus type: type 2 Diabetes mellitus [facility]p insulin use: unspecified [facility]p insulin use status Diabetes mellitus complication status: with circulatory complication Diabetes mellitus complication detail: with other circulatory complications Qualified Code(s): E11.59 - Type 2 diabetes mellitus with other circulatory complications (2) Right sided cerebral hemisphere cerebrovascular accident (CVA) Current Visit: Yes Status: Chronic (3) Altered mental status Current Visit: Yes Status: Acute Qualifiers: Altered mental status type: delirium Qualified Code(s): R41.0 - Disorientation, unspecified (4) Coronary artery disease Current Visit: No Status: Chronic Qualifiers: Coronary Disease-Associated Artery/Lesion type: [place] artery [place] vs. t ransplanted heart: [place] heart Associated angina: without angina Qualified Code(s): I25.10 - Atherosclerotic heart disease of [place] coronary artery without angina pectoris (5) Orthostatic hypotension Current Visit: Yes Status: Acute - Subjective Interval history: Patient appears relaxed and currently denies any discomforts or shortness of breath. Patient continues with issues of orthostatic hypotension since his [place]. Nursing performed orthostatic vital signs remained positive. Patient systolic blood pressure while laying in was 128 and after sitting dropped to 77. Patient states that he had slight dizziness but denied any palpitations position changes. Patient also has had very poorly controlled glucose on fingersticks. Multiple readings greater than 300. Patient with a history of noncompliance at home due to dementia - Constitutional Vitals: Temp Pulse Resp BP Pulse Ox 98.2 F 75 16 150/80 93 07/18/18 08:00 07/18/18 08:00 07/18/18 08:00 07/18/18 08:00 07/18/18 08:00 General appearance: Present: cooperative, A&O X 3, pleasant, no acute distress, answers questions appropriately Exam: Noted some difficulty answering complex questions - Head Head exam: Present: atraumatic, normocephalic - Eye Eye exam: Present: PERRL, conjuntiva pink, sclera anicteric Pupils: Present: PERRL - Neck Neck exam general surgery: Present: supple, trachea midline. Absent: lymphadenopathy - Respiratory Respiratory exam: Present: CTAB. Absent: accessory muscle use, rales, rhonchi, wheezes Additional comments: CTA to upper [place] and diminished bases. RR remains relaxed. - Cardiovascular Cardiovascular exam: Present: RRR, +S1, +S2. Absent: diastolic murmur, gallop, rubs, systolic murmur Additional comments: Continued orthostatic hypotension with lying systolic 128 and sitting systolic dropping 77. - GI/Abdominal GI/Abdominal exam: Present: normal bowel sounds, soft, no peritoneal signs. Absent: distended, tenderness - Extremities Exam Extremities exam: Present: warm, radial pulses palpable and symmetrical. Absent: calf tenderness, cyanotic, pedal edema - Neurological Exam Neurological exam: Present: CN II-XII intact, oriented X3, no focal deficits. Absent: pronater drift, facial droop, speech deficit - Skin Skin exam: Present: dry, intact Internal Medicine: Result - Labs CBC & Chem 7: 07/14/18 05:35 07/17/18 02:20 Consult Discharge Plan - Plan Referrals: Yogi Moser Jr, MD [Primary Care Provider] -
--- NOTE | 2018-07-18 11:08 | Discharge Summary ---
Addendum entered and electronically signed by Giovanni Benitez MD 07/18/18 12:42: I have personally performed a face to face evaluation on this patient. I have r eviewed and agree with the care plan. History and Exam by me shows: Spoke with bed management and hospitalist at [facility] about patient. I said that he would need to have cardiology evaluation because of medication, intermittent atrial fibrillation, fall risk, and severe orthostatic hypotension. I also agreed that podiatry should see him because of his opening wound, again, at his great toe site. Patient is without complaint but he does have back pain whenever he sits up. He is found this morning to have rather marked orthostasis. He is 148 systolic when supine but falls to 70, again, even with Florinef on board. Physical therapy has signed off because they cannot get him out of bed or do anything significant with him. Patient is constipated as a and not moved his bowels for the last 2 or 3 days, still. Discussed care with other providers and/or nursing. Patient has no complaint of chest discomfort, dyspnea, orthopnea, palpitations, nausea or vomiting, constipation or diarrhea, other changes in bowel habits, difficulty with urination, rash or itching, or other new complaints, except as mentioned above. Review of systems is otherwise negative. Examination: (Except as mentioned above): General: In no apparent distress. Alert and oriented 3. Nondiaphoretic. Head: Atraumatic and normocephalic. Respiratory: No use of accessory muscles. Lungs are clear throughout. Normal airflow. Cardiovascular: Regular rate and rhythm without murmur appreciated. Abdomen: Bowel sounds are normal. No hepatosplenomegaly mass or tenderness appreciated. Obese and therefore difficult to palpate deeply. Extremities: No cyanosis clubbing or edema. He has more drainage from his great toe interpretation site and this is now foul-smelling. Skin: Warm and non-diaphoretic with no new lesions noted. 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 We will ask cardiology to evaluate medications and consider pacemaker, etc. He is known to have intermittent atrial fibrillation, here, with coronary arteries disease. He is not a candidate, will refill, for anticoagulation given his fall risk. Infected diabetic foot ulcer which will need to have broad-spectrum antibiotics and local wound care. Diabetes is under poor control and we discontinued his Megace, today, because of his increasing appetite. This is different from his baseline where he was not eating at home. Patient's is unable to care for him and she wants him to be able to walk, care for himself, again. We did not provide her with any promises about his ability to do this. I suspect that he will need shelter placement. Original Note: Date of Encounter: 07/18/18 Time of Encounter: 11:06 - Discharge Diagnosis (1) Diabetes mellitus Priority: Primary Status: Chronic Comments: Patient's glucose continues to be poorly controlled. Patient continues to have multiple fingerstick readings greater than 300. Patient's long-acting insulin was increased yesterday and continues to be covered with an aggressive sliding scale coverage. Patient's glucose level has been slightly higher today after starting on Florinef. Patient being transferred to acute care facility for further for further cardiac evaluation. Will also recommend evaluation of right great toes amputation incision, which appears to now have slight drainage. Qualifiers: Diabetes mellitus type: type 2 Diabetes mellitus gag writer insulin use: unspecified jail insulin use status Diabetes mellitus complication status: with circulatory complication Diabetes mellitus complication detail: with other circulatory complications Qualified Code(s): E11.59 - Type 2 diabetes mellitus with other circulatory complications (2) Right sided cerebral hemisphere cerebrovascular accident (CVA) Priority: Secondary Status: Chronic Comments: No acute issues. Patient's neurological exam appears unchanged since his admission to facility. (3) Altered mental status Priority: Secondary Status: Acute Comments: Patient has been appropriate during interview exam. No behavior issues reported per nursing. Patient continues to have some short-term memory issues Qualifiers: Altered mental status type: delirium Qualified Code(s): R41.0 - Disorientation, unspecified (4) Coronary artery disease Priority: Secondary Status: Chronic Comments: Patient continues with orthostatic hypotension. Patient is been unable to perform a physical therapy. Patient's systolic blood pressure has been stable while lying in bed with his latest blood pressure at 128/74, but after repositioning to a sitting position patient's blood pressure dropped to 77/46. Patient continues to have orthostatic hypotension since his admission to the facility. Patient was treated with fluids and started on Florinef with minimal result. Patient being transferred to [facility] for further evaluation per cardiology. Qualifiers: Coronary Disease-Associated Artery/Lesion type: [place] artery [place] vs. transplanted heart: [place] heart Associated angina: without angina Qualified Code(s): I25.10 - Atherosclerotic heart disease of [place] coronary artery without angina pectoris (5) Orthostatic hypotension Priority: Secondary Status: Acute Comments: As mentioned above. Patient continues to have orthostatic hypotension since his admission. Patient was treated with fluids over the past several days and started on Florinef with minimal result. Today's lying blood pressure was 128/74 with a heart rate of 69. Patient was repositioned to a sitting position and immediately his blood pressure dropped to 77/46 with a heart rate 76. Patient states he continues to have dizziness when sitting, but denies any pal pitations Hospital course: Mr. Yañez is a 78 year old male who was transferred to this facility for rehabilitation due to his deconditioning. [facility] at [facility] for hyperglycemia and has a long vascular history to include CAD and CVA. Patient has experienced orthostatic hypotension since his admission to this facility. Patient has been treated with fluids and was started on Florinef yesterday, all with minimal response. Today's blood pressure while lying in bed was 128/74 with a heart rate 69. Patient was changed to a sitting position today and his blood pressure intermittently dropped to 77/46 with a heart rate 76. Patient complains of dizziness with changes of position but denies any palpitations or chest discomforts. Due to patient's blood pressure has not been able to participate in any physical therapy. Patient's glucose remains uncontrolled with multiple readings greater than 300. Patient's glucose is slightly higher since starting on Florinef yesterday. Patient continues to be covered with sliding scale insulin and yesterday his detemir insulin was increased to 24 units. Patient had a right great toe amputation with incision currently showing slight drainage. Patient being transferred to [facility] for further evaluation of orthostatic hypotension. Requests for patient be evaluated by cardiology due to patient's long cardiac history. Also requests for patient to be evaluated by orthopedic surgeon to evaluate amputation site. Discharge discussed with: patient Time spent discussing smoking cessation with patient: 3 to 10 minutes - Time Spent with Patient Total time spent providing and/or coordinating discharge services: Less than 30 minutes - Discharge Medications Home Medications: Aspirin Enteric Coated [Aspirin EC] 81 mg PO DAILY 14 Days #14 10/22/17 [Rx] Clopidogrel [Plavix] 75 mg PO DAILY 14 Days #14 tablet 10/22/17 [Rx] BuPROPion XL (24 HR) [Wellbutrin Xl] 150 mg PO DAILY 05/06/18 [History] Megestrol Acetate [Megace] 10 ml PO BID 07/08/18 [History] Insulin DETEMIR [Levemir] 15 unit SQ HS 30 Days n2pgcpe 07/11/18 [Rx] Metoprolol [Lopressor] 25 mg PO BID tablet 07/11/18 [Rx] Simvastatin [Zocor] 80 mg PO HS tablet 07/11/18 [Rx] Tamsulosin [Flomax] 0.4 mg PO DAILY capsule 07/11/18 [Rx] Allergies/Adverse Reactions: Allergy/AdvReac Type Severity Reaction Status Date / Time No Known Allergies Allergy Verified 11/13/17 12:13 Date of admission: 07/11/18 16:37 Primary care physician: Yogi Moser Jr, MD Consults: 07/11/18 17:26 Consult to Occupational Therapy [CONS] Routine Comment: eval Reason for Consult: eval Does patient have active BEDREST order?: No Is patient medically & hemodynamically stable?: Yes Consult to Physical Therapy [CONS] Routine Comment: eval Reason for Consult: eval Does patient have active BEDREST order?: No Is patient medically & hemodynamically stable?: Yes Consult to Recreational Therapy [CONS] Routine Comment: Consult to Credit Card Clerk [CONS] Routine Reason for SW Consult: eval 07/16/18 08:28 Consult to Cardiology [CONS] Routine Comment: Consulting Provider: Cardiology Virgen Reason for Consult: orthostatic hypotension Call Completed: Yes Discharging clinician: Giovanni Benitez - Constitutional Vitals: Temp Pulse Resp BP Pulse Ox 98.2 F 75 16 150/80 93 07/18/18 08:00 07/18/18 08:00 07/18/18 08:00 07/18/18 08:00 07/18/18 08:00 General appearance: Present: cooperative, A&O X 3, pleasant, no acute distress, answers questions appropriately - Head Head exam: Present: atraumatic, normocephalic - Eye Eye exam: Present: PERRL, conjuntiva pink, sclera anicteric Pupils: Present: PERRL - Neck Neck exam general surgery: Present: supple, trachea midline. Absent: lymphadenopathy - Respiratory Respiratory exam: Present: CTAB. Absent: accessory muscle use, rales, rhonchi, wheezes - Cardiovascular Cardiovascular exam: Present: irregular rhythm, RRR, +S1, +S2. Absent: diastolic murmur, gallop, rubs, systolic murmur Additional comments: Continued orthostatic hypotension with lying blood pressure 128/74 and sitting blood pressure 77/46. Complaints of dizziness with position change. Heart rate remains irregular with controlled rate less than 100. - GI/Abdominal GI/Abdominal exam: Present: normal bowel sounds, soft, no peritoneal signs. Absent: distended, tenderness - Extremities Exam Extremities exam: Present: warm, radial pulses palpable and symmetrical. Absent: calf tenderness, cyanotic, pedal edema Additional comments: Right great toe surgical incision currently with a minimal amount of drainage noted. - Neurological Exam Neurological exam: Present: CN II-XII intact, oriented X3, no focal deficits. Absent: pronater drift, facial droop, speech deficit - Skin Skin exam: Present: dry, intact - Patient Status Disposition: Transfer Critical Access Hosp Condition: Fair Functional capacity at discharge: wheelchair bound Overall status at discharge: patient is not back to baseline - Discharge Instructions Follow Up With: Yogi Moser Jr, MD [Primary Care Provider] - - Diet and Activity Activity: as per physical therapy Diet: low fat, low cholesterol, low salt diet
[2018-07-18 11:24] VITALS: BP 128/74
== END 2018-07-18 14:00 | disposition other institution (70) | DRG 638 ==
LOC: INPGRE 07-11 16:37